=== PATIENT | female | born 1965 | race Caucasian/White ===

== ENCOUNTER 2022-02-14 00:56 | Emergency (ER) | payer BC, OTHER ==
[~2022-02-14] VITALS: Ht 157.5 cm; Wt 72.6 kg
[2022-02-14] MEDS ORDERED: OXYMETAZOLINE HCL 0.05% NAS 1 SPRAY BTL ONE (03:00)
[2022-02-14] MEDS ORDERED: ACETAMINOPHEN/CODEINE 300MG - 30MG TAB PO ONE (03:15)
[2022-02-14] MEDS ORDERED: ACETAMINOPHEN-1 EAC4 PO (03:15)
[2022-02-14] MEDS ORDERED: ONDANSETRON HCL 4 MG ORAL DISINTEGRATING TAB PO ONE (03:15)
[2022-02-14] MEDS ORDERED: ONDANSETRON ODT4 MG PO (03:15)
[2022-02-14] MEDS ORDERED: ACETAMINOPHEN/CODEINE 300MG - 30MG TAB ONE (03:26)
[2022-02-14] MEDS ORDERED: ONDANSETRON HCL 4 MG ORAL DISINTEGRATING TAB ONE (03:26)
== END 2022-02-14 03:32 | disposition home or self-care (01) ==
LOC: ER 00:58
DX: S00.83XA Contusion of other part of head, initial encounter (principal); S00.81XA Abrasion of other part of head, initial encounter; S00.212A Abrasion of left eyelid and periocular area, initial encounter; W01.0XXA Fall on same level from slipping, tripping and stumbling without subsequent striking against object, initial encounter; Y93.01 Activity, walking, marching and hiking; Y92.89 Other specified places as the place of occurrence of the external cause
CPT/HCPCS: 70450; 70486; 72125; 99283; Q0162

== ENCOUNTER 2024-09-07 09:41 | Emergency (ER) | payer OTHER, BC ==
[~2024-09-07] VITALS: Ht 160 cm; Wt 79.4 kg
[~2024-09-07 09:41] MED LIST: ACETAMINOPHEN-1 EAC4 PO; ONDANSETRON ODT4 MG PO
[2024-09-07 09:46] VITALS: TEMP 97.5
[2024-09-07] MEDS: HYDROCODONE/APAP 5MG-325MG TAB PO ONE (10:33)
[2024-09-07] MEDS: IBUPROFEN 600 MG TAB PO STA (10:33)
[2024-09-07 12:32] VITALS: PULSE 74; RESP 18; O2SAT 95
[2024-09-07] MEDS ORDERED: NAPROXEN250 MG PO (12:36)
== END 2024-09-07 12:40 | disposition home or self-care (01) ==
LOC: ER 09:48
DX: S20.211A Contusion of right front wall of thorax, initial encounter (principal); S80.12XA Contusion of left lower leg, initial encounter; S80.11XA Contusion of right lower leg, initial encounter; V57.5XXA Driver of pick-up truck or van injured in collision with fixed or stationary object in traffic accident, initial encounter; Y92.488 Other paved roadways as the place of occurrence of the external cause; I10 Essential (primary) hypertension; K21.9 Gastro-esophageal reflux disease without esophagitis; G25.81 Restless legs syndrome
CPT/HCPCS: 71046; 99283